=== PATIENT | female | born 1955 | race Caucasian/White ===

== ENCOUNTER 2022-09-30 08:40 | Outpatient (CLI) | payer MEDICARE, OTHER | END 2022-09-30 08:41 | disposition home or self-care (01) | LOC: CSHRAD 08:40 | PROVIDERS: ATTEND Surgery | DX: M47.22 Other spondylosis with radiculopathy, cervical region (principal); Z98.890 Other specified postprocedural states | CPT/HCPCS: 72040 ==

== ENCOUNTER 2024-01-29 09:36 | Outpatient (CLI) | payer MEDICARE, OTHER | END 2024-01-29 09:37 | disposition home or self-care (01) | LOC: CSHMAMMO 09:36 | PROVIDERS: ATTEND Internal Medicine | DX: Z12.31 Encounter for screening mammogram for malignant neoplasm of breast (principal) | CPT/HCPCS: 77063; 77067 ==

== ENCOUNTER 2025-02-01 09:35 | Outpatient (CLI) | payer MEDICARE, OTHER | END 2025-02-01 09:36 | disposition home or self-care (01) | LOC: CSHMAMMO 09:35 | PROVIDERS: ATTEND Internal Medicine Hematology & Oncology | DX: Z12.31 Encounter for screening mammogram for malignant neoplasm of breast (principal); Z80.3 Family history of malignant neoplasm of breast; Z91.89 Other specified personal risk factors, not elsewhere classified; Z98.890 Other specified postprocedural states; Z85.3 Personal history of malignant neoplasm of breast | CPT/HCPCS: 77063; 77067 ==